=== PATIENT | female | born 1935 | race Caucasian/White ===

== ENCOUNTER 2016-12-07 | Emergency (ER) | payer MEDICARE ==
[2016-12-07 19:37] LABS: HEMOGLOBIN 14.8 gm/dl (12.3-15.3); RED BLOOD COUNT 4.82 M/UL (4.00-5.10); WHITE BLOOD COUNT 11.7 K/UL (4.5-11.0)
[2016-12-07 20:04] LABS: BUN/CREATININE RATIO 19 (0-10)
== END 2016-12-07 21:38 | disposition home or self-care (01) ==
PROVIDERS: Emergency Medicine
DX: S01.81XA Laceration without foreign body of other part of head, initial encounter (principal); I48.91 Unspecified atrial fibrillation; R31.9 Hematuria, unspecified; W01.198A Fall on same level from slipping, tripping and stumbling with subsequent striking against other object, initial encounter; Y92.009 Unspecified place in unspecified non-institutional (private) residence as the place of occurrence of the external cause; Z88.5 Allergy status to narcotic agent; Z79.82 Long term (current) use of aspirin; Z79.899 Other long term (current) drug therapy
CPT/HCPCS: 12002; 70450; 71010; 72125; 80053; 81001; 82550; 82553; 83874; 84484; 85025; 85610; 85730; 87086; 90471; 90715; 93005; 99284

== ENCOUNTER 2017-03-22 15:43 | Emergency (ER) | payer MEDICARE ==
[2017-03-22 16:20] LABS: HEMOGLOBIN 13.7 gm/dl (12.3-15.3); RED BLOOD COUNT 4.48 M/UL (4.00-5.10); WHITE BLOOD COUNT 7.7 K/UL (4.5-11.0)
[2017-03-22 16:40] LABS: BUN/CREATININE RATIO 14 (0-10)
== END 2017-03-22 18:58 | disposition home or self-care (01) ==
LOC: ER1 15:43
PROVIDERS: Family Medicine
DX: R07.9 Chest pain, unspecified (principal); I25.10 Atherosclerotic heart disease of native coronary artery without angina pectoris; Z86.79 Personal history of other diseases of the circulatory system
CPT/HCPCS: 36415; 71010; 80053; 82550; 82553; 83874; 84484; 85025; 93005; 99285

== ENCOUNTER 2021-01-17 14:21 | Emergency (ER) | payer MEDICARE ==
[~2021-01-17 14:21] MED LIST: ACIDOPHILUS1 EAC4 PO; CARDIZEM CD120 MG PO; CEFUROXIME500 MG PO; COLCHICINE 0.60.6 MG PO; COREG 25MG TAB25 MG PO; DETROL LA4 MG PO; DUREZOL5 ML OP; ECOTRIN81 MG PO; FLAGYL500 MG PO; FUROSEMIDE20 MG PO; IMDUR ER TAB 3030 MG PO; K-DUR TAB 10 M10 MEQ PO; KEFLEX500 MG PO; LASIX TAB 20 MG20 MG PO; LASIX20 MG PO; LASIX40 MG PO; LISINOPRIL-HCT1 EACH PO; LOPRESSOR50 MG PO; NITROGLYCERIN0.4 MG SL; OMNICEF 300 MG300 MG PO; POTASSIUM CHLO20 ME1 PO; PRADAXA 75 MG C75 MG PO; PRADAXA75 MG PO; PRAVACHOL20 MG PO; RANEXA500 MG PO; THERAGRAN M TAB1 EA PO; TYLENOL 325MG325 MG PO; VANCOCIN 125 M125 MG PO; VANCOMYCIN HCL250 MG PO; VANCOMYCIN PO
[2021-01-17 16:56] LABS: HEMOGLOBIN 14.3 gm/dl (12.3-15.3); RED BLOOD COUNT 4.4 M/UL (4.00-5.10); WHITE BLOOD COUNT 9.5 K/UL (4.5-11.0)
== END 2021-01-17 18:16 | disposition home or self-care (01) ==
LOC: ER1 14:21
PROVIDERS: Family Medicine
DX: R60.0 Localized edema (principal); Z79.82 Long term (current) use of aspirin; Z88.5 Allergy status to narcotic agent; Z95.1 Presence of aortocoronary bypass graft; Z95.0 Presence of cardiac pacemaker
CPT/HCPCS: 71045; 80053; 82550; 82553; 83874; 83880; 84439; 84443; 84484; 85025; 93005; 99284

== ENCOUNTER 2021-03-22 12:55 | Inpatient (IN) | payer MEDICARE ==
[~2021-03-22] VITALS: Ht 152.4 cm; Wt 75.5 kg
[2021-03-22 14:16] LABS: HEMOGLOBIN 15.5 gm/dl (12.3-15.3); RED BLOOD COUNT 4.77 M/UL (4.00-5.10); WHITE BLOOD COUNT 11.6 K/UL (4.5-11.0)
[2021-03-22 14:38] LABS: BUN/CREATININE RATIO 29 (0-10)
[2021-03-23 04:11] LABS: BUN/CREATININE RATIO 32 (0-10)
[2021-03-23 04:15] LABS: HEMOGLOBIN 13.6 gm/dl (12.3-15.3); WHITE BLOOD COUNT 12.7 K/UL (4.5-11.0)
[2021-03-23 04:16] LABS: RED BLOOD COUNT 4.19 M/UL (4.00-5.10)
[2021-03-24 03:33] LABS: HEMOGLOBIN 14.9 gm/dl (12.3-15.3)
[2021-03-24 03:40] LABS: RED BLOOD COUNT 4.61 M/UL (4.00-5.10)
[2021-03-24 03:55] LABS: BUN/CREATININE RATIO 34 (0-10)
[2021-03-25 04:47] LABS: HEMOGLOBIN 14.8 gm/dl (12.3-15.3); RED BLOOD COUNT 4.59 M/UL (4.00-5.10); WHITE BLOOD COUNT 23.3 K/UL (4.5-11.0)
[2021-03-25 05:10] LABS: BUN/CREATININE RATIO 39 (0-10)
[2021-03-25] MEDS ORDERED: PROTONIX 40 MG40 M1 PO (11:22)
[2021-03-25] MEDS ORDERED: COLCHICINE 0.60.6 MG PO (11:22)
[2021-03-25] MEDS ORDERED: AUGMENTIN 875-1 EACH PO (11:26)
[2021-03-25] MEDS ORDERED: FLORASTOR250 MG PO (11:33)
== END 2021-03-25 15:15 | disposition home or self-care (01) | DRG 689 ==
LOC: ER1 12:55 → CDU 16:13 → M/S 17:10
PROVIDERS: Emergency Medicine; Physician Assistant; ADMIT Internal Medicine
DX: N30.00 Acute cystitis without hematuria (principal); G93.41 Metabolic encephalopathy; E46 Unspecified protein-calorie malnutrition; I50.32 Chronic diastolic (congestive) heart failure; B96.20 Unspecified Escherichia coli [E. coli] as the cause of diseases classified elsewhere; M10.9 Gout, unspecified; D72.828 Other elevated white blood cell count; T38.0X5A Adverse effect of glucocorticoids and synthetic analogues, initial encounter; E83.52 Hypercalcemia; Z20.822 Contact with and (suspected) exposure to COVID-19; I25.10 Atherosclerotic heart disease of native coronary artery without angina pectoris; R53.81 Other malaise; I48.91 Unspecified atrial fibrillation; M79.604 Pain in right leg; I49.5 Sick sinus syndrome; M79.605 Pain in left leg; I11.0 Hypertensive heart disease with heart failure; E66.01 Morbid (severe) obesity due to excess calories; Z68.32 Body mass index [BMI] 32.0-32.9, adult; Z87.442 Personal history of urinary calculi; Z95.1 Presence of aortocoronary bypass graft; Z95.0 Presence of cardiac pacemaker; Z86.11 Personal history of tuberculosis; Z90.49 Acquired absence of other specified parts of digestive tract; Z95.5 Presence of coronary angioplasty implant and graft; Z88.5 Allergy status to narcotic agent; Z88.2 Allergy status to sulfonamides; Z88.8 Allergy status to other drugs, medicaments and biological substances; Z82.49 Family history of ischemic heart disease and other diseases of the circulatory system; Z79.82 Long term (current) use of aspirin; Z79.899 Other long term (current) drug therapy
CPT/HCPCS: 36415; 51701; 80048; 80053; 81001; 82550; 82553; 82962; 83874; 83970; 84484; 84550; 85025; 87040; 87077; 87086; 87186; 96374; 96375; 96376; 97110-GP-CQ; 97116; 97116-GP-CQ; 97161; 97530; 99284; G0378; J0696; J1100; J2270; J2405; U0002

== ENCOUNTER 2021-05-04 10:30 | Emergency (ER) | payer MEDICARE ==
[~2021-05-04 10:30] MED LIST changes: +AUGMENTIN 875-1 EACH PO; +FLORASTOR250 MG PO; +PROTONIX 40 MG40 M1 PO
[2021-05-04 12:38] LABS: HEMOGLOBIN 13.1 gm/dl (12.3-15.3); WHITE BLOOD COUNT 10.4 K/UL (4.5-11.0)
[2021-05-04 12:59] LABS: BUN/CREATININE RATIO 23 (0-10)
[2021-05-04] MEDS ORDERED: ZITHROMAX250 MG PO (14:18)
[2021-05-04] MEDS ORDERED: ZOFRAN 4 MG TAB4 MG PO (17:01)
== END 2021-05-04 17:15 | disposition home or self-care (01) ==
LOC: ER1 10:30
PROVIDERS: Physician Assistant Medical
DX: U07.1 COVID-19 (principal); J12.82 Pneumonia due to coronavirus disease 2019; I11.0 Hypertensive heart disease with heart failure; I50.9 Heart failure, unspecified; Z88.5 Allergy status to narcotic agent; Z23 Encounter for immunization
CPT/HCPCS: 71045; 80053; 81001; 83690; 83880; 85025; 93005; 94664; 99284; M0243; U0002

== ENCOUNTER 2021-05-09 03:09 | Emergency (ER) | payer MEDICARE ==
[~2021-05-09 03:09] MED LIST changes: +ZITHROMAX250 MG PO; +ZOFRAN 4 MG TAB4 MG PO
[2021-05-09 04:11] LABS: HEMOGLOBIN 12.3 gm/dl (12.3-15.3); RED BLOOD COUNT 3.88 M/UL (4.00-5.10); WHITE BLOOD COUNT 13.5 K/UL (4.5-11.0)
[2021-05-09] MEDS ORDERED: OMNICEF 300 MG300 MG PO (06:49)
== END 2021-05-09 11:03 | disposition home or self-care (01) ==
LOC: ER1 03:09
PROVIDERS: Family Medicine
DX: N39.0 Urinary tract infection, site not specified (principal); U07.1 COVID-19; I11.0 Hypertensive heart disease with heart failure; I50.9 Heart failure, unspecified; M10.9 Gout, unspecified
CPT/HCPCS: 71045; 80053; 81001; 83615; 85025; 86140; 87077; 87086; 87186; 96374; 99284; J0696

== ENCOUNTER 2021-05-26 21:04 | Emergency (ER) | payer MEDICARE ==
[2021-05-26 22:22] LABS: HEMOGLOBIN 12.5 gm/dl (12.3-15.3); RED BLOOD COUNT 3.87 M/UL (4.00-5.10)
== END 2021-05-27 02:10 | disposition home or self-care (01) ==
LOC: ER1 21:04
PROVIDERS: Student in an Organized Health Care Education/Training Program
DX: N64.9 Disorder of breast, unspecified (principal); R94.4 Abnormal results of kidney function studies; I48.91 Unspecified atrial fibrillation; Z95.1 Presence of aortocoronary bypass graft; Z79.899 Other long term (current) drug therapy
CPT/HCPCS: 71045; 80053; 81001; 82550; 82553; 83605; 83690; 83874; 84484; 85025; 87040; 93005; 99285; Q9967

== ENCOUNTER 2021-07-20 16:20 | Inpatient (IN) | payer MEDICARE ==
[~2021-07-20] VITALS: Ht 152.4 cm; Wt 62.2 kg
[2021-07-20 17:06] LABS: HEMOGLOBIN 14.9 gm/dl (12.3-15.3); RED BLOOD COUNT 4.54 M/UL (4.00-5.10); WHITE BLOOD COUNT 16.8 K/UL (4.5-11.0)
[2021-07-20 17:36] LABS: BUN/CREATININE RATIO 26 (0-10)
[2021-07-21 03:39] LABS: HEMOGLOBIN 14.8 gm/dl (12.3-15.3); RED BLOOD COUNT 4.5 M/UL (4.00-5.10); WHITE BLOOD COUNT 25.1 K/UL (4.5-11.0)
[2021-07-21] MEDS ORDERED: KLOR-CON M2020 MEQ PO (11:10)
[2021-07-21] MEDS ORDERED: RANEXA500 MG PO (11:10)
[2021-07-22 03:04] LABS: WHITE BLOOD COUNT 22.7 K/UL (4.5-11.0)
[2021-07-22 03:05] LABS: HEMOGLOBIN 10.6 gm/dl (12.3-15.3); RED BLOOD COUNT 3.31 M/UL (4.00-5.10)
[2021-07-22 03:18] LABS: ADENOVIRUS F 40/41 Not Detected (Negative); ASTROVIRUS Not Detected (Negative); CAMPYLOBACTER Not Detected (Negative); CLOSTRIDIUM DIFFICILE TOX A/B Not Detected (Negative); CRYPTOSPORIDIUM Not Detected (Negative); E.COLI 0157 Not Detected (Negative); ENTAMOEBA HISTOLYTICA Not Detected (Negative); ENTEROAGGREGATIVE E.COLI (EAEC Not Detected (Negative); ENTEROPATHOGENIC E.COLI (EPEC) Not Detected (Negative); ENTEROTOXIGENIC E.COLI (ETEC) Not Detected (Negative); GIARDIA LAMBLIA Not Detected (Negative); NOROVIRUS GI/GII Not Detected (Negative); PLESIOMONAS SHIGELLOIDES Not Detected (Negative); ROTOVIRUS A Not Detected (Negative); SALMONELLA Not Detected (Negative); SAPOVIRUS Not Detected (Negative); SHIG/ENTEROINVAS.ECOLI (EIEC) Not Detected (Negative); SHIGA-LIK TOX.PRO.E.COLI (STEC Not Detected (Negative); VIBRIO Not Detected (Negative); VIBRIO CHOLERAE Not Detected (Negative); YERSINIA ENTEROCOLITICA Not Detected (Negative)
[2021-07-22 13:50] LABS: BUN/CREATININE RATIO 36 (0-10)
[2021-07-23 04:37] LABS: HEMOGLOBIN 9.2 gm/dl (12.3-15.3)
[2021-07-23 04:46] LABS: RED BLOOD COUNT 2.85 M/UL (4.00-5.10); WHITE BLOOD COUNT 11.2 K/UL (4.5-11.0)
[2021-07-23 05:27] LABS: BUN/CREATININE RATIO 34 (0-10)
[2021-07-24 02:37] LABS: BUN/CREATININE RATIO 30 (0-10)
[2021-07-24] MEDS ORDERED: FERROUS SULFAT325 M2 PO (11:03)
[2021-07-24] MEDS ORDERED: POLYETHYLENE GL17 GM PO (11:03)
[2021-07-24] MEDS ORDERED: AMIODARONE HCL200 MG PO (11:03)
[2021-07-24] MEDS ORDERED: LOPRESSOR 25 MG25 MG PO (11:03)
[2021-07-24] MEDS ORDERED: FLORANEX GRANU1 EACH PO (11:03)
[2021-07-24] MEDS ORDERED: AMPICILLIN 500500 MG PO (11:13)
== END 2021-07-24 17:45 | disposition home health service (06) | DRG 871 ==
LOC: ER1 16:20 → PROG CARE 19:38 → CDU 19:38 → PROG CARE 22:13
PROVIDERS: Emergency Medicine; Internal Medicine; ADMIT Internal Medicine
DX: A41.9 Sepsis, unspecified organism (principal); G93.41 Metabolic encephalopathy; I50.32 Chronic diastolic (congestive) heart failure; E87.1 Hypo-osmolality and hyponatremia; N10 Acute pyelonephritis; I49.5 Sick sinus syndrome; M10.9 Gout, unspecified; L89.152 Pressure ulcer of sacral region, stage 2; E78.5 Hyperlipidemia, unspecified; F03.90 Unspecified dementia, unspecified severity, without behavioral disturbance, psychotic disturbance, mood disturbance, and anxiety; R53.83 Other fatigue; I48.0 Paroxysmal atrial fibrillation; I11.0 Hypertensive heart disease with heart failure; I25.10 Atherosclerotic heart disease of native coronary artery without angina pectoris; I27.20 Pulmonary hypertension, unspecified; Z95.0 Presence of cardiac pacemaker; Z90.49 Acquired absence of other specified parts of digestive tract; Z95.5 Presence of coronary angioplasty implant and graft; Z87.442 Personal history of urinary calculi; Z88.8 Allergy status to other drugs, medicaments and biological substances; Z88.5 Allergy status to narcotic agent; Z98.890 Other specified postprocedural states; Z94.89 Other transplanted organ and tissue status; I25.2 Old myocardial infarction; Z79.82 Long term (current) use of aspirin; Z79.899 Other long term (current) drug therapy; Z79.52 Long term (current) use of systemic steroids; Z86.16 Personal history of COVID-19
CPT/HCPCS: ECHO; 36415; 36600; 51701; 70450; 71045; 80048; 80053; 80202; 80307; 81001; 82270; 82272; 82550; 82553; 82803; 82962; 83036; 83540; 83550; 83605; 83690; 83735; 83874; 83880; 84100; 84132; 84439; 84443; 84484; 85025; 85027; 85652; 86140; 87040; 87077; 87086; 87186; 87507; 92526; 92610; 93005; 93306; 96374; 97162; 99285; J0153; J0696; J1650; J2185; J3370; J3480; J7030; J7070; Q0177; U0002

== ENCOUNTER 2021-11-05 15:38 | Emergency (ER) | payer MEDICARE ==
[~2021-11-05 15:38] MED LIST changes: +AMIODARONE HCL200 MG PO; +AMPICILLIN 500500 MG PO; +FERROUS SULFAT325 M2 PO; +FLORANEX GRANU1 EACH PO; +KLOR-CON M2020 MEQ PO; +LOPRESSOR 25 MG25 MG PO; +POLYETHYLENE GL17 GM PO
[2021-11-05 16:28] LABS: HEMOGLOBIN 13.5 gm/dl (12.3-15.3); RED BLOOD COUNT 4.24 M/UL (4.00-5.10); WHITE BLOOD COUNT 11.4 K/UL (4.5-11.0)
[2021-11-05 16:52] LABS: BUN/CREATININE RATIO 18 (0-10)
[2021-11-05] MEDS ORDERED: AUGMENTIN 875-1 EACH PO (18:54)
== END 2021-11-05 19:59 ==
LOC: ER1 15:38
PROVIDERS: Nurse Practitioner
DX: N39.0 Urinary tract infection, site not specified (principal); R31.9 Hematuria, unspecified; N63.0 Unspecified lump in unspecified breast; R30.0 Dysuria; I10 Essential (primary) hypertension; Z87.442 Personal history of urinary calculi; Z79.82 Long term (current) use of aspirin; Z95.0 Presence of cardiac pacemaker; Z88.5 Allergy status to narcotic agent; Z79.01 Long term (current) use of anticoagulants; I25.2 Old myocardial infarction
CPT/HCPCS: 51702; 80053; 81001; 85025; 87077; 87086; 87186; 96372; 96374; 96375; 99284; J0696; J1170; J2550; J7030; Q9967

== ENCOUNTER 2021-11-17 11:35 | Inpatient (IN) | payer MEDICARE ==
[~2021-11-17] VITALS: Ht 157.5 cm; Wt 52.2 kg
[2021-11-17 12:08] LABS: HEMOGLOBIN 13.5 gm/dl (12.3-15.3); RED BLOOD COUNT 4.23 M/UL (4.00-5.10); WHITE BLOOD COUNT 9.5 K/UL (4.5-11.0)
[2021-11-17 12:39] LABS: BUN/CREATININE RATIO 17 (0-10)
[2021-11-17] MEDS ORDERED: ISOSORBIDE MONO30 MG PO (15:03)
[2021-11-17] MEDS ORDERED: TRAMADOL HCL50 MG PO (15:03)
[2021-11-17] MEDS ORDERED: AMIODARONE HCL200 MG PO (15:03)
[2021-11-18 02:53] LABS: RED BLOOD COUNT 4.3 M/UL (4.00-5.10)
[2021-11-18 03:18] LABS: BUN/CREATININE RATIO 18 (0-10)
[2021-11-19 05:46] LABS: HEMOGLOBIN 13.3 gm/dl (12.3-15.3); RED BLOOD COUNT 4.28 M/UL (4.00-5.10)
[2021-11-19 05:47] LABS: WHITE BLOOD COUNT 7.2 K/UL (4.5-11.0)
[2021-11-19 06:22] LABS: BUN/CREATININE RATIO 18 (0-10)
[2021-11-20 06:07] LABS: BUN/CREATININE RATIO 11 (0-10)
[2021-11-20 06:32] LABS: HEMOGLOBIN 13.3 gm/dl (12.3-15.3); RED BLOOD COUNT 4.18 M/UL (4.00-5.10); WHITE BLOOD COUNT 8.1 K/UL (4.5-11.0)
[2021-11-21 04:56] LABS: HEMOGLOBIN 11.6 gm/dl (12.3-15.3); WHITE BLOOD COUNT 9.8 K/UL (4.5-11.0)
[2021-11-21 05:02] LABS: BUN/CREATININE RATIO 13 (0-10)
[2021-11-21 05:23] LABS: RED BLOOD COUNT 3.64 M/UL (4.00-5.10)
[2021-11-22 07:17] LABS: HEMOGLOBIN 10.8 gm/dl (12.3-15.3); RED BLOOD COUNT 3.39 M/UL (4.00-5.10); WHITE BLOOD COUNT 8.1 K/UL (4.5-11.0)
[2021-11-22 07:19] LABS: BUN/CREATININE RATIO 10 (0-10)
--- NOTE | 2021-11-22 14:53 | NUR ---
GARSIA CATHETER D/D'S WITH 1300 ML YELLOW URINE IN UROMETER, PT TOLERATED WELL.
[2021-11-22] MEDS ORDERED: CIPROFLOXACIN750 MG PO (17:29)
--- NOTE | 2021-11-22 18:56 | NUR ---
report called to [facility]
== END 2021-11-22 20:23 | disposition home health service (06) | DRG 698 ==
LOC: ER1 11:35 → CDU 13:59 → M/S 13:59
PROVIDERS: Internal Medicine; Nurse Practitioner; Physician Assistant; ADMIT Internal Medicine
DX: T83.511A Infection and inflammatory reaction due to indwelling urethral catheter, initial encounter (principal); G93.41 Metabolic encephalopathy; Z20.822 Contact with and (suspected) exposure to COVID-19; A41.9 Sepsis, unspecified organism; G93.49 Other encephalopathy; J98.11 Atelectasis; J96.11 Chronic respiratory failure with hypoxia; I50.32 Chronic diastolic (congestive) heart failure; N30.00 Acute cystitis without hematuria; E87.6 Hypokalemia; E78.5 Hyperlipidemia, unspecified; I11.0 Hypertensive heart disease with heart failure; M10.9 Gout, unspecified; I95.9 Hypotension, unspecified; I25.10 Atherosclerotic heart disease of native coronary artery without angina pectoris; Y84.6 Urinary catheterization as the cause of abnormal reaction of the patient, or of later complication, without mention of misadventure at the time of the procedure; F03.90 Unspecified dementia, unspecified severity, without behavioral disturbance, psychotic disturbance, mood disturbance, and anxiety; E66.9 Obesity, unspecified; L89.621 Pressure ulcer of left heel, stage 1; B96.5 Pseudomonas (aeruginosa) (mallei) (pseudomallei) as the cause of diseases classified elsewhere; I49.5 Sick sinus syndrome; I48.0 Paroxysmal atrial fibrillation; R53.81 Other malaise; Z79.01 Long term (current) use of anticoagulants; Z95.0 Presence of cardiac pacemaker; Z74.01 Bed confinement status; Z79.82 Long term (current) use of aspirin; Z87.442 Personal history of urinary calculi; Z95.1 Presence of aortocoronary bypass graft; Z90.49 Acquired absence of other specified parts of digestive tract; Z95.5 Presence of coronary angioplasty implant and graft; Z88.6 Allergy status to analgesic agent; Z82.49 Family history of ischemic heart disease and other diseases of the circulatory system; Z87.19 Personal history of other diseases of the digestive system; Z68.21 Body mass index [BMI] 21.0-21.9, adult; Z87.440 Personal history of urinary (tract) infections
CPT/HCPCS: 36415; 51702; 71045; 80048; 80053; 80202; 81001; 82550; 82553; 83735; 83874; 84132; 84484; 85025; 85027; 87040; 87077; 87086; 87186; 92526; 92610; 93005; 94760; 96374; 96375; 96376; 99285; G0378; J0692; J0696; J1956; J2405; J2543; J3370; J7030; J7070; U0002

== ENCOUNTER 2021-11-26 23:00 | Emergency (ER) | payer MEDICARE ==
[~2021-11-26 23:00] MED LIST changes: +CIPROFLOXACIN750 MG PO; +ISOSORBIDE MONO30 MG PO; +TRAMADOL HCL50 MG PO
[2021-11-27 00:21] LABS: HEMOGLOBIN 11.9 gm/dl (12.3-15.3); RED BLOOD COUNT 3.72 M/UL (4.00-5.10); WHITE BLOOD COUNT 12.5 K/UL (4.5-11.0)
[2021-11-27 00:52] LABS: BUN/CREATININE RATIO 18 (0-10)
== END 2021-11-27 05:05 | disposition home or self-care (01) ==
LOC: ER1 23:00
PROVIDERS: Emergency Medicine
DX: I50.9 Heart failure, unspecified (principal); Z87.442 Personal history of urinary calculi; Z95.1 Presence of aortocoronary bypass graft; Z20.822 Contact with and (suspected) exposure to COVID-19
CPT/HCPCS: 0240U; 71045; 80048; 81001; 82550; 82553; 83880; 84484; 85025; 93005; 96374; 99284; J1940